=== PATIENT | female | born 1975 | race Caucasian/White ===

== ENCOUNTER 2017-06-23 16:00 | Emergency (ER) | payer BC, SELFPAY ==
[2017-06-23 16:01] VITALS: BP 158/110; PULSE 78; RESP 17; TEMP 36.6; O2SAT 98; BMI 48.0
--- NOTE | 2017-06-23 16:22 | ED.DCSUM_ITS ---
- ER Visit Summary Date of Service: 06/23/17 Chief Complaint: Laceration volar surface right thumb History of Present Illness: The patient is a 42 F who is right-handed presents with laceration volar surface of the right thumb. This occurred prior to presentation. Immunization greater than 10 years/unknown. She denies any paresthesia, anesthesia or motor weakness. She denies limited range of motion. She has no other complaints. Physical Examination: Pressure is elevated 158/110. She does have history of hypertension. She states is compliant with her medication. She has no symptoms related to the hypertension i.e. headache visual cerebella, vertigo etc. Dressing was removed. She has a 2.5 x 0.4 cm avulsed area. There is no subungual hematoma. Sensation is normal. Capillary refill is normal. Flexion extension at the IP joint is intact. Test Results: None are indicated Emergency Department Course and Treatment: Adacel 0.5 mL IM, wound care Treatment Plan: Appropriate home-going instructions Disposition: Discharged home Impression: Skin avulsion 2.5 x 0.4 cm volar surface right thumb initial encounter This note was generated with [employer] dictation software. It may contain incorrect words, spelling, and punctuation that were not noted in review of the chart prior to signing ED Disposition - Plan for ED Patient: Disposition: Home or Assisted Living Chief Complaint: Laceration Instructions: ED Laceration Small Superf No Sutr Referrals: [facility] Doctor,Out of [Primary Care Provider] - As Needed
[2017-06-23] MEDS: Diphth,Pertuss(Acell),Tet Vac 0.5 ML Vial IM (16:31)
[2017-06-23 16:32] VITALS: BP 156/107; PULSE 74; RESP 16; O2SAT 98
--- NOTE | 2017-06-23 16:50 | ED.RN ---
REVIEWED D/C INSTRUCTIONS, FOLLOW UP CARE, AND S/S THAT WOULD WARRANT A RETURN TO THE ED WITH PT. PT VERBALIZED AN UNDERSTANDING AND DENIES FURTHER QUESTIONS FOR THIS RN. PT SKIN P/W/D, REPS EVEN AND UNLABORED, PT A&O X 3, NO DISTRESS NOTED. PT AMBULATED OUT OF ED, GAIT STEADY.
== END 2017-06-23 16:51 | disposition home or self-care (01) ==
PROVIDERS: Emergency Provider Emergency Medicine
DX: S61.001A Unspecified open wound of right thumb without damage to nail, initial encounter (principal); W45.8XXA Other foreign body or object entering through skin, initial encounter; Y93.9 Activity, unspecified; Y92.89 Other specified places as the place of occurrence of the external cause; Y99.9 Unspecified external cause status; I10 Essential (primary) hypertension; Z23 Encounter for immunization
CPT/HCPCS: 90471; 90715; 99282